=== PATIENT | male | born 1970 | race Caucasian/White ===

== ENCOUNTER → 2020-08-27 | Outpatient (CLI) | payer BC, OTHER ==
[~2020-08-27] MED LIST: AGM875T PO
--- NOTE | 2020-08-27 09:37 | Diagnostic Imaging Report ---
Indication: Right thumb pain and swelling 3 views of the right thumb show no fracture, dislocation or radiopaque foreign object. IMPRESSION: There appears to be some soft tissue swelling of the right thumb. No other abnormality seen. Dictated by: Dictated on workstation # [id number]
== END ==
LOC: RAD 08:43
PROVIDERS: ATTEND Nurse Practitioner Family
DX: M79.644 Pain in right finger(s) (principal); R22.31 Localized swelling, mass and lump, right upper limb
CPT/HCPCS: 73140

== ENCOUNTER 2023-02-14 07:29 | Emergency (ER) | payer BC ==
[~2023-02-14] VITALS: Ht 181 cm; Wt 73.0 kg
[2023-02-14 07:57] VITALS: BP_SYST 116; BP_SYST 121; BP_SYST 128; BP_DIAS 76; BP_DIAS 81; BP_DIAS 82
[2023-02-14] MEDS ORDERED: HOLD METFORMIN - RECEIVED CONTRAST 20 ML VIAL IV SCH (08:00)
[2023-02-14] MEDS ORDERED: IOHEXOL 350 MG/ML 100 ML (OMNIPAQUE 350) VIAL IV ONE (08:00)
[2023-02-14] MEDS ORDERED: NS 100 ML (IVPB) BAG IV ONE (08:00)
[2023-02-14 08:09] LABS: BASOPHILS # (AUTO) 0.1 10^3/uL (0.0-0.1); BASOPHILS % (AUTO) 1 % (0-10); EOSINOPHILS # (AUTO) 0.4 10^3/uL (0.0-0.3); EOSINOPHILS % (AUTO) 7 % (0-10); HEMATOCRIT 43 % (40-54); LYMPHOCYTES # (AUTO) 2.1 10^3/uL (1.0-4.0); LYMPHOCYTES % (AUTO) 36 % (12-44); MEAN CORPUSCULAR HEMOGLOBIN 31 pg (25-34); MEAN CORPUSCULAR HGB CONC 32 g/dL (32-36); MEAN CORPUSCULAR VOLUME 95 fL (80-99); MEAN PLATELET VOLUME 11.1 fL (9.0-12.2); MONOCYTES # (AUTO) 0.5 10^3/uL (0.0-1.0); MONOCYTES % (AUTO) 9 % (0-12); NEUTROPHILS # (AUTO) 2.7 10^3/uL (1.8-7.8); NEUTROPHILS % (AUTO) 47 % (42-75); PLATELET COUNT 180 10^3/uL (130-400); WHITE BLOOD COUNT 5.7 10^3/uL (4.3-11.0)
[2023-02-14 08:14] LABS: ALBUMIN 4.2 GM/DL (3.2-4.5); CHLORIDE 108 MMOL/L (98-107); POTASSIUM 3.8 MMOL/L (3.6-5.0); SODIUM 143 MMOL/L (135-145)
[2023-02-14 08:16] LABS: CALCIUM 9.4 MG/DL (8.5-10.1)
[2023-02-14 08:17] LABS: GLUCOSE 103 MG/DL (70-105); TOTAL PROTEIN 6.8 GM/DL (6.4-8.2)
[2023-02-14 08:18] LABS: BILIRUBIN,TOTAL 0.5 MG/DL (0.1-1.0); CARBON DIOXIDE 26 MMOL/L (21-32); INR 0.9 (0.8-1.4); PROTHROMBIN TIME PATIENT 12.5 SEC (12.2-14.7)
[2023-02-14 08:20] LABS: ALKALINE PHOSPHATASE 84 U/L (40-136); CREATININE SERUM 0.97 MG/DL (0.60-1.30); GFR ESTIMATED 95
[2023-02-14 08:21] LABS: BUN/CREATININE RATIO 26; FIBRIN DEGRADATION PRODUCTS 0.57 UG/ML (0.00-0.49)
--- NOTE | 2023-02-14 08:22 | Diagnostic Imaging Report ---
EXAMINATION: CT head without contrast. TECHNIQUE: Multiple contiguous axial images were obtained through the brain without the use of intravenous contrast. All CT scans use one or more of the following dose optimizing techniques: automated exposure control, MA and/or KvP adjustment based on patient size and exam type or iterative reconstruction. HISTORY: Dizziness. Fall. Concern for stroke. COMPARISON: None available. FINDINGS: No large acute territorial ischemia, mass, or hemorrhage. No midline shift or mass effect. The ventricles, cortical sulci, and basilar cisterns are patent and unremarkable. The orbits are normal. Paranasal sinuses are normal. Mastoid air cells are clear. No soft tissue abnormality is seen. No osseus lesions or fractures are seen. IMPRESSION: 1. No large acute territorial ischemia, mass, or hemorrhage. Dictated by: Dictated on workstation # [id number]
[2023-02-14 08:23] LABS: ALANINE AMINOTRANSFERASE 30 U/L (0-55)
--- NOTE | 2023-02-14 08:32 | Diagnostic Imaging Report ---
PROCEDURE: CT cervical spine without contrast. TECHNIQUE: Multiple contiguous axial images were obtained through the cervical spine without the use of intravenous contrast. Sagittal and coronal reformations were then performed. Auto Exposure Controls were utilized during the CT exam to meet ALARA standards for radiation dose reduction. INDICATION: Neck pain. Fall. COMPARISON: None. FINDINGS: No acute fracture or dislocation in the cervical spine. Alignment is anatomic. No focal osseous lesions. The craniocervical junction is intact. Vertebral body heights are well-maintained. The included lungs are clear. The soft tissues are normal. IMPRESSION: 1. No acute fracture or dislocation in the cervical spine. Dictated by: Dictated on workstation # [id number]
--- NOTE | 2023-02-14 08:36 | Diagnostic Imaging Report ---
PROCEDURE: CT angiography of the head and CT angiography of the neck with and without contrast. TECHNIQUE: Contiguous noncontrast images were obtained from the skull base through the vertex. After intravenous contrast administration, helical CT angiography of the neck was performed. Source data was reformatted into 3D MIP projections. Delayed post contrast acquisition was also obtained. Auto Exposure Controls were utilized during the CT exam to meet ALARA standards for radiation dose reduction. INDICATION: Right face and neck numbness, stroke. COMPARISON: None. FINDINGS: The right common, right internal, right external carotid artery are patent and normal caliber. The right intracranial ICA, MCA, and ANDRE are patent and normal in caliber. The left common, left internal, left external carotid artery are patent and normal in caliber. The left intracranial ICA, MCA, and ANDRE are patent and normal in caliber. The bilateral vertebral arteries are patent and normal in caliber. 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 The right CUTTER BRAKE LINING is type. No aneurysm or arteriovenous malformation. Patent dural sinuses. No abnormal enhancement. No acute intracranial hemorrhage. The silva-white matter differentiation is preserved. No midline shift. The ventricles and cortical sulci are normal. Mucosal thickening within the sphenoid sinuses. The globes and orbits are normal. No neck mass or lymphadenopathy. Airway is patent. Normal lung apices. The osseous structures demonstrate no lytic or sclerotic bone lesions. IMPRESSION: No large vessel occlusion. No significant stenosis within the head and neck. Dictated by: Dictated on workstation # [id number]
--- NOTE | 2023-02-14 08:37 | Diagnostic Imaging Report ---
EXAMINATION: Chest 1 view HISTORY: Disequilibrium. Right-sided facial numbness. Concern for stroke. COMPARISON: None available. FINDINGS: The lung volumes are normal. No focal consolidation is seen. No large pleural effusion or pneumothorax is seen. The cardiomediastinal silhouette is normal in size and contour. No acute osseous abnormality is seen. IMPRESSION: 1. No acute pleuroparenchymal process. Dictated by: Dictated on workstation # [id number]
--- NOTE | 2023-02-14 08:38 | ED Neurological Problem ---
General Chief Complaint: Dizziness/Syncope Stated Complaint: DIZZY | CLAMMY Nursing Triage Note: PT STATES DIZZINESS AFTER WAKING UP THIS MORNING, PAIN IN RT NECK, DID NOT FALL Source: patient, family Exam Limitations: no limitations History of Present Illness Date Seen by Provider: Feb 14, 2023 Time Seen by Provider: 07:32 Initial Comments This 52-year-old gentleman presents to the emergency room with primary complaint of disequilibrium. He describes it as an inability to maintain balance when upright. It is not vertiginous. He has a little bit lightheaded. When he awoke this morning and stood, he fell into the wall and the nightstand without injury. He had to hold onto objects to stay upright as he ambulated. He complains of pain in the right side of his neck which is unusual for him. It radiates through his shoulder. He was clammy and sweaty. Last known well time was 0015 when he went to bed. Speech seems a little bit slow per family. He otherwise has no focal neurologic deficits. 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 He also has history of rheumatoid arthritis and is immunosuppressed with methotrexate. He has not taken any of his medications this morning. Patient appears to be walking with a limp. He states this is because he is being careful with his steps so as to not fall. He is not in any pain that is causing the limp. His PCP is Dr. Bob Ma in [place]. Allergies and Home Medications Allergies Coded Allergies: NKANo Known Allergies (Unverified Allergy, Mild, 10/11/08) Patient Home Medication List Home Medication List Reviewed: Yes Amoxicillin/Clavulanate K (Augmentin 875-125 Tablet) 1 Tab Tablet, 1 TAB PO BID Prescribed by: SYDNIE HAUSER on 10/11/08 9023 Review of Systems Review of Systems Constitutional: no symptoms reported Eyes: No Symptoms Reported Ears, Nose, Mouth, Throat: no symptoms reported Respiratory: no symptoms reported Cardiovascular: no symptoms reported Gastrointestinal: no symptoms reported Genitourinary: no symptoms reported Musculoskeletal: see HPI Skin: no symptoms reported Psychiatric/Neurological: See HPI Endocrine: No Symptoms Reported Hematologic/Lymphatic: No Symptoms Reported Past Zbkfbrb-Tevvhv-Lrgoud Hx Patient Social History Tobacco Use?: Yes Tobacco type used: Cigarettes Smoking Status: Current Everyday Smoker Use of E-Cig and/or Vaping dev: No Substance use?: No Alcohol Use?: No Immunizations Up To Date First/Initial COVID19 Vaccinat: NO Past Medical History Surgery/Hospitalization HX: RA, OSTEOARTHRITIS, DISK DISEASE IN NECK Surgeries: No Respiratory: No Cardiac: No Neurological: No Genitourinary: No Gastrointestinal: No Musculoskeletal: Yes Osteoporosis, Arthritis, Rheumatoid Arthritis Endocrine: No HEENT: No Cancer: No Psychosocial: No Integumentary: No Physical Exam Vital Signs Vital Signs - First Documented 02/14/23 02/14/23 07:33 11:58 Temp 36.5 Pulse 60 Resp 18 B/P (MAP) 136/83 (100) Pulse Ox 99 O2 Delivery Room Air Capillary Refill : Less Than 3 Seconds Height, Weight, BMI Height: '" Weight: lbs. oz. 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, no motor/sensory deficits, alert, normal mood/affect, oriented x 3 Crainal Nerves: normal hearing, PERRL, abnormal speech (Speech possibly slightly sluggish) Coordination/Gait: normal finger to nose (Normal [id number]), abnormal gait (Walks with a slight cautiously limping gait) Motor/Sensory: no motor deficit, no sensory deficit Skin: normal color, warm/dry Stroke NIH Stroke Scale Assessment Select: Initial Level of Consciousness: 0=Alert (0), Level of Consciousness- Questions: 0=Answers both month/age (0), LOC Commands: 0=Performs both tasks (0), Gaze: Normal (0), Visual Stewart: 0=No visual loss (0), Facial Movement (Facial Paresis): 0=Normal symmetrical mnt (0), Motor Function-Arms Right: 0=No drift (0), Motor Function-Arms Left: 0=No drift (0), Motor Function-Legs Right: 0=No drift (0), Motor Function-Legs Left: 0=No drift (0), Limb Ataxia: 0=Absent (0), Sensory: 0=Normal:no loss (0), Best Language: 0=No aphasia (0), Dysarthria: 0=Normal (0), Extinction & Inattention: 0=No abnormality (0), Total: 0 Progress/Results/Core Measures Results/Orders Lab Results Laboratory Tests Test 02/14/23 07:40 02/14/23 08:55 Range/Units White Blood Count 5.7 4.3-11.0 10^3/uL Red Blood Count 4.56 4.30-5.52 10^6/uL Hemoglobin 14.0 13.3-17.7 g/dL Hematocrit 43 40-54 % Mean Corpuscular Volume 95 80-99 fL Mean Corpuscular Hemoglobin 31 25-34 pg Mean Corpuscular Hemoglobin Concent 32 32-36 g/dL Red Cell Distribution Width 14.6 H 10.0-14.5 % Platelet Count 180 130-400 10^3/uL Mean Platelet Volume 11.1 9.0-12.2 fL Immature Granulocyte % (Auto) 0 % Neutrophils (%) (Auto) 47 42-75 % Lymphocytes (%) (Auto) 36 12-44 % Monocytes (%) (Auto) 9 0-12 % Eosinophils (%) (Auto) 7 0-10 % Basophils (%) (Auto) 1 0-10 % Neutrophils # (Auto) 2.7 1.8-7.8 10^3/uL Lymphocytes # (Auto) 2.1 1.0-4.0 10^3/uL Monocytes # (Auto) 0.5 0.0-1.0 10^3/uL Eosinophils # (Auto) 0.4 H 0.0-0.3 10^3/uL Basophils # (Auto) 0.1 0.0-0.1 10^3/uL Immature Granulocyte # (Auto) 0.0 0.0-0.1 10^3/uL Prothrombin Time 12.5 12.2-14.7 SEC INR Comment 0.9 0.8-1.4 Activated Partial Thromboplast Time 23 L 24-35 SEC D-Dimer 0.57 H 0.00-0.49 UG/ML Sodium Level 143 135-145 MMOL/L Potassium Level 3.8 3.6-5.0 MMOL/L Chloride Level 108 H 98-107 MMOL/L Carbon Dioxide Level 26 21-32 MMOL/L Anion Gap 9 5-14 MMOL/L Blood Urea Nitrogen 25 H 7-18 MG/DL Creatinine 0.97 0.60-1.30 MG/DL Estimat Glomerular Filtration Rate 95 BUN/Creatinine Ratio 26 Glucose Level 103 70-105 MG/DL Calcium Level 9.4 8.5-10.1 MG/DL Corrected Calcium 9.2 8.5-10.1 MG/DL Total Bilirubin 0.5 0.1-1.0 MG/DL Aspartate Amino Transf (AST/SGOT) 25 5-34 U/L Alanine Aminotransferase (ALT/SGPT) 30 0-55 U/L Alkaline Phosphatase 84 40-136 U/L Troponin I < 0.028 <0.028 NG/ML Total Protein 6.8 6.4-8.2 GM/DL Albumin 4.2 3.2-4.5 GM/DL Urine Color YELLOW Urine Clarity CLEAR Urine pH 8.5 5-9 Urine Specific Spearfish 1.010 L 1.016-1.022 Urine Protein NEGATIVE NEGATIVE Urine Glucose (UA) NEGATIVE NEGATIVE Urine Ketones NEGATIVE NEGATIVE Urine Nitrite NEGATIVE NEGATIVE Urine Bilirubin NEGATIVE NEGATIVE Urine Urobilinogen 0.2 < = 1.0 MG/DL Urine Leukocyte Esterase NEGATIVE NEGATIVE Urine RBC (Auto) NEGATIVE NEGATIVE Urine RBC NONE /HPF Urine WBC RARE /HPF Urine Crystals PRESENT H /LPF Urine Amorphous Sediment MOD GILBERTO URATES H /LPF Urine Bacteria NEGATIVE /HPF Urine Casts NONE /LPF Urine Mucus NEGATIVE /LPF Urine Culture Indicated NO My Orders Orders - FRANKIE BANUELOS MD Cbc With Automated Diff (02/14/23 07:55) Protime With Inr (02/14/23 07:55) Partial Thromboplastin Time (02/14/23 07:55) Comprehensive Metabolic Panel (02/14/23 07:55) Fibrin Degradation Products (02/14/23 07:55) Troponin I Shabana (02/14/23 07:55) Ua Culture If Indicated (02/14/23 07:55) Chest 1 View, Ap/Pa Only (02/14/23 07:55) Ekg Tracing (02/14/23 07:55) Nothing By Mouth (02/14/23 Breakfast) Accucheck Stat ONCE (02/14/23 07:55) Ed Iv/Invasive Line Start (02/14/23 07:55) Ed Iv/Invasive Line Start (02/14/23 07:55) Vital Signs Stroke Patient Q15M (02/14/23 07:55) Ct Head Wo-R/O Stroke (02/14/23 07:55) O2 (02/14/23 07:55) Monitor-Rhythm Ecg Trace Only (02/14/23 07:55) Dysphagia Screening Tool Q10MX1 (02/14/23 07:55) Ct Cervical Spine Wo (02/14/23 07:56) Ct Angio Head/Neck (02/14/23 07:56) Iohexol Injection (Omnipaque 350 Mg/Ml 1 (02/14/23 08:00) Received Contrast (Hold Metformin- Contr (02/14/23 08:00) Ns (Ivpb) 100 Ml (Sodium Chloride 0.9% 1 (02/14/23 08:00) Medications Given in ED Vital Signs/I&O 02/14/23 02/14/23 02/14/23 07:33 07:57 11:58 Temp 36.5 Pulse 60 57 73 64 70 Resp 18 18 B/P (MAP) 136/83 (100) 128/76 (93) 121/76 121/81 (94) 116/82 (93) Pulse Ox 99 99 O2 Delivery Room Air Room Air Blood Pressure Mean: 100 Progress Progress Note #1: Time: 08:00 Progress Note I followed patient to the exam room with nursing staff during triage process. Patient was interviewed and examined. Labs and CT imaging were ordered. Patient was thoroughly examined and determination for stroke activation was made. Stroke activation was paged at 0750. Patient was not a thrombolytic candidate as he did not have significantly disabling symptoms or significant measurable deficits on exam. Risk of thrombolytics would outweigh benefit. Symptoms were also present upon waking without definite last known well time. Progress Note #2: Time: 11:45 Progress Note Patient underwent thorough stroke evaluation. 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 CT of the head and cervical spine was viewed by me. There were no acute abnormalities appreciated on my interpretation. Radiologist's report was also reviewed and noted no acute abnormalities. There were some chronic issues as outlined in the report. CT angiogram was also obtained to thoroughly evaluate vascular structures. There was no evidence of large vessel occlusion, dissection, or other acute problems. Patient was awaiting review of reports well ER staff was tending to other critical patients. In the meantime, his symptoms improved without any particular treatment. He was resting comfortably upon my reentry to the room and appeared to have fallen asleep. He was not feeling any lightheadedness or disequilibrium at that time. He did get up and take a few steps around the room. He denied feeling any lightheadedness or disequilibrium at that time. He still had some pain in his right neck but that was reduced. Standing blood pressure was unchanged at 119 systolic. Patient was offered muscle relaxers or pain medications in the ER which she declined. He prefers to take his usual medications including diclofenac and add Tylenol if necessary. He has a follow-up appointment with his primary care provider on . Initial ECG Impression Date: Feb 14, 2023 Initial ECG Impression Time: 08:45 Initial ECG Rate: 54 Initial ECG Rhythm: S.Ariel Comment Mild sinus bradycardia with no ST elevation or depression. No definite abnormal intervals or axis deviation. Diagnostic Imaging Diagonstic Imaging: CT Plain Films/CT/US/NM/MRI: head Comments NAME: [facility] REC#: [id number] PT STATUS: REG ER : 1970 PHYSICIAN: FRANKIE BANUELOS MD ADMIT DATE: 02/14/23/ER Signed Date of Exam:02/14/23 CT HEAD WO-R/O STROKE EXAMINATION: CT head without contrast. TECHNIQUE: Multiple contiguous axial images were obtained through the brain without the use of intravenous contrast. All CT scans use one or more of the following dose optimizing techniques: automated exposure control, MA and/or KvP adjustment based on patient size and exam type or iterative reconstruction. HISTORY: Dizziness. Fall. Concern for stroke. COMPARISON: None available. FINDINGS: No large acute territorial ischemia, mass, or hemorrhage. No midline shift or mass effect. The ventricles, cortical sulci, and basilar cisterns are patent and unremarkable. The orbits are normal. Paranasal sinuses are normal. Mastoid air cells are clear. No soft tissue abnormality is seen. No osseus lesions or fractures are seen. IMPRESSION: 1. No large acute territorial ischemia, mass, or hemorrhage. Dictated by: Dictated on workstation # [id number] Dict: 02/14/23814 Trans: 02/14/23823 [facility] [id number] Interpreted by: DINA ABRAMS DO Electronically signed by: DINA ABRAMS DO 02/14/23823 Diagonstic Imaging: CT Plain Films/CT/US/NM/MRI: c-spine Comments NAME: YOHANNES [facility] REC#: [id number] PT STATUS: REG ER : 1970 PHYSICIAN: FRANKIE BANUELOS MD ADMIT DATE: 02/14/23/ER Draft Date of Exam:02/14/23 CT CERVICAL SPINE WO PROCEDURE: CT cervical spine without contrast. TECHNIQUE: Multiple contiguous axial images were obtained through the cervical spine without the use of intravenous contrast. Sagittal and coronal reformations were then performed. Auto Exposure Controls were utilized during the CT exam to meet ALARA standards for radiation dose reduction. INDICATION: Neck pain. Fall. COMPARISON: None. FINDINGS: No acute fracture or dislocation in the cervical spine. Alignment is anatomic. No focal osseous lesions. The craniocervical junction is intact. Vertebral body heights are well-maintained. The included lungs are clear. The soft tissues are normal. IMPRESSION: 1. No acute fracture or dislocation in the cervical spine. Dictated on workstation # [id number] Dict: 02/14/23823 Trans: 02/14/23830 [id number] Interpreted by: DINA ABRAMS DO Departure Impression Primary Impression: Disequilibrium Additional Impressions: Neck pain on right side Rheumatoid arthritis Qualified Codes: M06.9 - Rheumatoid arthritis, unspecified Disposition: HOME, SELF-CARE Condition: Improved Departure-Patient Inst. Decision time for Depature: 11:49 Referrals: BOB MA MD (PCP/Family) Primary Care Physician Patient Instructions: Neck pain Add. Discharge Instructions: Drink plenty of clear liquids to stay well-hydrated. You may use your usual medications including diclofenac for pain. Add Tylenol (acetaminophen) up to 1000 mg every 6 hours as needed for additional pain control. Discuss your symptoms and treatment of pain further at your follow-up appointment on . Return to care if you have worsening symptoms of disequilibrium or pain despite following these instructions. Return to emergency room immediately if you develop any strokelike symptoms including weakness in an arm or leg, facial drooping, numbness or loss of sensation, confusion, difficulty making or understanding speech, sudden vision changes, or any other sudden neurologic changes. All discharge instructions reviewed with patient and/or family. Voiced understanding. FRANKIE BANUELOS MD Feb 14, 2023 08:38
[2023-02-14 09:24] LABS: BILIRUBIN,URINE NEGATIVE (NEGATIVE); CLARITY,URINE CLEAR; COLOR,URINE YELLOW; GLUCOSE, URINE (UA) NEGATIVE (NEGATIVE); KETONES,URINE NEGATIVE (NEGATIVE); LEUKOCYTE ESTERASE ,URINE NEGATIVE (NEGATIVE); NITRITE,URINE NEGATIVE (NEGATIVE); PH,URINE 8.5 (5-9); PROTEIN,URINE NEGATIVE (NEGATIVE); WBC,URINE RARE /HPF
[2023-02-14 09:25] LABS: AMORPHOUS SEDIMENT,UR MOD AMOR URATES /LPF; BACTERIA,URINE NEGATIVE /HPF
[2023-02-14 11:58] VITALS: BP 121/76
== END 2023-02-14 11:58 | disposition home or self-care (01) ==
LOC: EDUNIT# 07:29 → ER 07:30
DX: R42 Dizziness and giddiness (principal); M06.9 Rheumatoid arthritis, unspecified; R00.1 Bradycardia, unspecified; F17.210 Nicotine dependence, cigarettes, uncomplicated; Z28.310 Unvaccinated for COVID-19
CPT/HCPCS: 36415; 70450; 70496; 70498; 71045; 72125; 80053; 81000; 84484; 85025; 85379; 85610; 85730; 93005; 93041